=== PATIENT | male | born 1990 | race Caucasian/White ===

== ENCOUNTER 2023-12-16 20:56 | Emergency (ER) | payer MEDICAID ==
[2023-12-16 21:23] VITALS: BP 142/93; O2SAT 100
--- NOTE | 2023-12-16 22:10 | ED Physician Documentation ---
History of Present Illness - Stated complaint Stated Complaint: R KNEE PX - Chief complaint Chief Complaint: General - History obtained from History obtained from: Patient - Additonal information Additional information: HPI from patient. Patient c/o 5 days of gradual onset, constant, and steadily worsening right leg pain, redness, and swelling. These symptoms began at site of abrasion over right knee but progressing to involve entire pre-patellar area in redness, swelling, and pain, with milder degree of swelling and pain having spread both proximal and distal to the right knee. Pain is worse with palpation, movement, weight- bearing. Denies h/o similar symptoms. Denies fever. PD PAST MEDICAL HISTORY - Past Medical History Cardiovascular: None Respiratory: None Neuro: None Endocrine/Autoimmune: None GI: None : None HEENT: None Psych: None Musculoskeletal: None Derm: None - Past Surgical History Past Surgical History: No - Present Medications Home Medications: Ambulatory Orders Medication Instructions Recorded Confirmed Doxycycline [Vibramycin] 100 mg PO BID #20 tablet 12/17/23 Oxycodone HCl/Acetaminophen 1 - 2 each PO Q6H PRN #14 tablet 12/17/23 [Percocet 5-325 mg Tablet] - Allergies Allergies/Adverse Reactions: Allergies Allergy/AdvReac Type Severity Reaction Status Date / Time No Known Drug Allergies Allergy Verified 12/16/23 21:18 - Social History Does the pt smoke?: Yes Smoking Status: Current every day smoker Does the pt drink ETOH?: No Does the pt have substance abuse?: No Substance Use and Type: Meth - Immunizations Immunizations are current?: No - POLST Patient has POLST: No PD ED PE NORMAL - Vitals Vital signs reviewed: Yes - General General: Alert and oriented X 3, No acute distress, Well developed/nourished PD ED PE EXPANDED - Extremities Extremities: Other (right knee NURIA (FROM albeit with exacerbation of pain at full flexion)) QUINTEN LE visual: 1 - swelling, tenderness (raised confluent erythema over entire pre-patellar surface, TTP without fluctuance. hot to touch) 2 - swelling (subtle swelling without erythema both proximal and distal to right knee) Results - Vitals Vitals: Oxygen O2 Source Room air - Rads (name of study) RLE venous US with doppler Relevant Findings:: Prelim report reviewed, See rad report PD Medical Decision Making - ED course Complexity details: considered differential, d/w patient ED course: H+P c/w right knee cellulitis. Intact ROM and lack of effusion argue against septic arthritis. RLE US negative for DVT. He is given 10mg oxycodone PO, 1 gram IM rocephin, and 100mg doxycycline PO. E- prescribed doxycycline and percocet. Return precautions carefully reviewed, and advised to contact PCP tomorrow to arrange for next available appointment for reevaluation (ideally reevaluate in 2-3 days if feasible) Departure - Departure Disposition: 01 Home, Self Care Clinical Impression: Cellulitis Qualifiers: Site of cellulitis: extremity Site of cellulitis of extremity: lower extremity Laterality: right Qualified Code(s): L03.115 - Cellulitis of right lower limb Condition: Good Instructions: ED Infec Skin Cellulitis Prescriptions: Oxycodone HCl/Acetaminophen [Percocet 5-325 mg Tablet] 1 - 2 each PO Q6H PRN #14 tablet PRN Reason: pain Doxycycline [Vibramycin] 100 mg PO BID #20 tablet Comments: There is no evidence of blood clots in the right leg on the ultrasound performed tonight. You were given an injection of a strong antibiotic (ceftriaxone), as well as a different antibiotic by mouth (doxycycline).I have electronically submitted prescriptions for Percocet (narcotic/opiate pain medication) and a 10-day course of the doxycycline antibiotic to the [facility] in [place]. I recommend that you contact your primary care provider later this morning when the office opens to arrange for a follow-up/reevaluation appointment, ideally by the end of this week. I am prescribing a short course of narcotic pain medication for you. These are potentially dangerous and addictive medications that should be used carefully. These medications may constipate you. Take an wuhg-mus-[id number] stool softener (docusate) twice daily with plenty of water while taking these medications. If you go 24 hours without a bowel movement, take [id number] miralax, per package instructions. Do not drink or drive while taking these medications. If you received narcotic or sedating medications while in the emergency department, do not drive for 24 hours. Store this medication in a safe, secure place and out of reach of children. It is a violation of federal law to give or sell this medication to another person or to use in a manner other than prescribed. The ED will not refill narcotic prescriptions, including prescriptions lost or stolen. To dispose of unwanted medications: 1. [facility] [address] in [place] has a medication drop box. They accept prescription medications (in pill form) Friday through Friday 9:00 a.m. to 5:00 p.m. 2. The [facility] accepts prescription medications (in pill form only) for disposal year round. Call for more inf ormation. 3. Contact the [facility] for the next [facility] sponsored prescription drug collection event. , [phone], or [phone]; Discharge Date/Time: 12/17/23 01:37
[2023-12-16] MEDS: DOXYCYCLINE 100 MG TABLET PO STA (23:51)
[2023-12-16] MEDS: oxyCODONE 5 MG TABLET PO STA (23:51)
[2023-12-16] MEDS: cefTRIAXone 1 GM VIAL IM STA (23:52)
[2023-12-16] MEDS: LIDOCAINE 1% 2 ML VIAL MC ONE (23:56)
--- NOTE | 2023-12-17 00:16 | Ultrasound Report ---
PROCEDURE: Duplex Ext Veins Right INDICATIONS: RLE pain, swelling TECHNIQUE: Real-time imaging, as well as color and pulse Doppler interrogation, were performed of the lower extr emity deep veins from the inguinal ligament to the popliteal fossa. Attempted visualization of the ca lf veins was performed. COMPARISON: None. FINDINGS: The deep veins are normally compressible, and free of intraluminal thrombus. Color and pu lse Doppler demonstrate normal phasic intraluminal flow. There is normal augmentation response to di stal compression maneuver. Enlarged, but morphologically normal lymph node seen in the right inguinal region, indeterminate, pos sibly reactive. IMPRESSION: No deep venous thrombosis of the visualized lower extremity. Reviewed by: Sheila Carmona MD, PhD on 12/17/2023 12:15 AM PDT Approved by: Sheila Carmona MD, PhD on 12/17/2023 12:15 AM PDT Station ID: [id number]
== END 2023-12-17 01:37 | disposition home or self-care (01) ==
LOC: ED 20:56
DX: L03.115 Cellulitis of right lower limb (principal); F17.200 Nicotine dependence, unspecified, uncomplicated
CPT/HCPCS: 93971; 96372; 99283; 99284; A9270